=== PATIENT | male | born 1995 ===

== ENCOUNTER 2017-08-27 18:45 | Emergency (ER) | payer SELFPAY ==
[2017-08-27 19:05] VITALS: BP 107/71; PULSE 70; RESP 18; TEMP 99.2; O2SAT 96
[2017-08-27] MEDS ORDERED: Sodium Chloride 0.9% 1,000 ML IV STA (19:22)
--- NOTE | 2017-08-27 19:37 | ED PDOC ---
HPI: General Adult Time Seen by Provider: 08/27/17 19:22 Chief Complaint (Nursing): Flu-like Symptoms Chief Complaint (Provider): Flu-like symptoms History Per: Patient History/Exam Limitations: no limitations Onset/Duration Of Symptoms: Days (x4) Current Symptoms Are (Timing): Still Present Recent Trauma: None Additional Complaint(s): Nate Buenrostro is a 22 year old male, with no past medical history, who presents to the emergency department complaining of fever, sore throat, vomiting and molar pain onset for x4 days. Patient took Tylenol today with no relief of symptoms. He denies any cough or other medical complaints. PMD: None provided. Past Medical History Reviewed: Historical Data, Nursing Documentation, Vital Signs Vital Signs: Last Vital Signs Temp 99.2 F 08/27/17 19:02 Pulse 70 08/27/17 19:02 Resp 18 08/27/17 19:02 BP 107/71 08/27/17 19:02 Pulse Ox 96 08/27/17 21:38 - Medical History PMH: No Chronic Diseases - Surgical History Surgical History: No Surg Hx - Family History Family History: States: Unknown Family Hx - Home Medications Home Medications: Ambulatory Orders Medication Instructions Recorded Ibuprofen [Motrin] 600 mg PO Q8 PRN #21 tab 08/27/17 Mag&Al/Simet/Diphen/Lido [First 5 ml MM TID PRN #1 kit 08/27/17 Magic Mouthwash] Penicillin VK [Penicillin VK Tab] 500 mg PO QID #40 tab 08/27/17 - Allergies Allergies/Adverse Reactions: Allergies Allergy/AdvReac Type Severity Reaction Status Date / Time No Known Allergies Allergy Verified 08/27/17 19:02 Review of Systems ROS Statement: Except As Marked, All Systems Reviewed And Found Negative Constitutional: Positive for: Fever ENT: Positive for: Mouth Pain, Throat Pain Respiratory: Negative for: Cough Gastrointestinal: Positive for: Vomiting Physical Exam - Reviewed Nursing Documentation Reviewed: Yes Vital Signs Reviewed: Yes - Physical Exam Appears: Positive for: Well, Non-toxic, No Acute Distress Head Exam: Positive for: ATRAUMATIC, NORMAL INSPECTION, NORMOCEPHALIC Skin: Positive for: Normal Color, Warm, Dry Eye Exam: Positive for: Normal appearance ENT: Positive for: Pharyngeal Erythema (and ulcerated on posterior pharynx ), Tonsillar Exudate Neck: Positive for: Painless ROM, Supple Cardiovascular/Chest: Positive for: Regular Rate, Rhythm. Negative for: Murmur Respiratory: Positive for: Normal Breath Sounds (clear auscultation b/l). Negative for: Respiratory Distress Extremity: Positive for: Normal ROM. Negative for: Deformity, Swelling Neurologic/Psych: Positive for: Alert, Oriented - Laboratory Results Result Diagrams: 08/27/17 20:01 08/27/17 20:01 - ECG O2 Sat by Pulse Oximetry: 96 (RA) Pulse Ox Interpretation: Normal - Progress ED Course And Treament: rapid strep neg mono neg toradol 15 mg iv x 1 dose ns 1 liter wide open viscous lidocaine swish and spit morphine 2 mg iv x 1 dose for pain seen with Dr. Redd. Will send throat cx and treat for strep. Medical Decision Making Medical Decision Making: Initial Impression: Initial Plan: --CMP --CBC w/ differential --Toradol 15 mg IVP --Lidocaine 2% 5 ml PO --Sodium Chloride 1,000 ml IV 1,000 mls/hr --Anson [Infectious Mononucleosis] --Rapid Strep Group A Antigen --reevaluation ~ Scribe Attestation: Documented by Jalen Hackett, acting as a scribe for Jayne Vallejo PA-C. Provider Scribe Attestation: All medical record entries made by the Scribe were at my direction and personally dictated by me. I have reviewed the chart and agree that the record accurately reflects my personal performance of the history, physical exam, medical decision making, and the department course for this patient. I have also personally directed, reviewed, and agree with the discharge instructions and disposition. Disposition - Clinical Impression Clinical Impression: Pharyngitis - Patient ED Disposition Is Patient to be Admitted: No - Disposition Referrals: [facility] [Outside] Jamie Delacruz MD [Staff Provider] - Disposition: Routine/Home Disposition Time: 21:28 Condition: FAIR Prescriptions: Ibuprofen [Motrin] 600 mg PO Q8 PRN #21 tab PRN Reason: Pain, Moderate (4-7) Mag&Al/Simet/Diphen/Lido [First Magic Mouthwash] 5 ml MM TID PRN #1 kit PRN Reason: Pain, Moderate (4-7) Penicillin VK [Penicillin VK Tab] 500 mg PO QID #40 tab Instructions: Pharyngitis (ED) Forms: [facility] (Danish), [facility] ED School/Work Excuse Print Language: ANGUILLAN
[2017-08-27 20:06] LABS: BASO % 0.4 % (0.0-2.0); EOS % 0.3 % (0.0-4.0); HEMOGLOBIN 15.5 g/dL (12.0-18.0); LYMPH # 0.9 K/uL (1.0-4.3); LYMPH % 16.2 % (20.0-40.0); MEAN CELL VOLUME 84.1 fl (80.0-94.0); MEAN CORPUSCULAR HEMOGLOBIN 28.3 pg (27.0-31.0); MEAN CORPUSCULAR HGB CONC 33.6 g/dL (33.0-37.0); MEAN PLATELET VOLUME 9.8 fl (7.2-11.7); MONO # 0.6 K/uL (0.0-0.8); MONO % 9.9 % (0.0-10.0); NEUT # 4.2 K/uL (1.8-7.0); NEUT % 73.2 % (50.0-75.0); NRBC % 1.1 % (0.0-0.0); RBC 5.49 Mil/uL (4.40-5.90); RED CELL DISTRIBUTION WIDTH 13.4 % (11.5-14.5); WHITE BLOOD COUNT 5.7 K/uL (4.8-10.8)
[2017-08-27 20:15] LABS: ALBUMIN 4.8 g/dL (3.5-5.0); ALT/SGPT 60 U/L (21-72); AST/SGOT 29 U/L (17-59); BLOOD UREA NITROGEN 7 mg/dl (9-20); CALCIUM 9.7 mg/dL (8.4-10.2); GFR AFRICAN-AMERICAN > 60; GFR NON-AFRICAN AMERICAN > 60
[2017-08-27 20:26] LABS: ALB/GLOB RATIO 1.3 (1.0-2.1)
[2017-08-27] MEDS ORDERED: Morphine 4 MG/ML VIAL IVP ONE (21:55)
[2017-08-27] MEDS ORDERED: Oxycodone/Acetaminophen 5/325 mg Tab PO STA (22:38)
== END 2017-08-27 22:56 | disposition home or self-care (01) ==
LOC: H.ER 18:45
DX: J02.9 Acute pharyngitis, unspecified (principal)
CPT/HCPCS: 80053; 85025; 86308; 87070; 87430; 96361; 96374; 99283; J1885; J7040

== ENCOUNTER 2018-01-08 17:36 | Emergency (ER) | payer OTHER ==
[2018-01-08] MEDS ORDERED: Sodium Chloride 0.9% 1,000 ML IV STA (18:01)
--- NOTE | 2018-01-08 18:14 | ED PDOC ---
HPI: Abdomen Time Seen by Provider: 01/08/18 18:00 Chief Complaint (Nursing): Abdominal Pain Chief Complaint (Provider): Right Flank Pain and Right abdominal pain History Per: Patient History/Exam Limitations: no limitations Onset/Duration Of Symptoms: Days (x1 week) Outside of [place] travel?: No Current Symptoms Are (Timing): Still Present Quality Of Discomfort: "Pain" Associated Symptoms: denies: Nausea, Vomiting, Diarrhea, Back Pain, Urinary Symptoms Exacerbating Factors: None Additional Complaint(s): 22 year old male presents to the emergency department complaining of right sided abdominal pain x1 week. Denies nausea, vomiting, diarrhea, vision problems , testicular pain, chest pain, numbness, tingling, urinary symptoms. FAMILY PROVIDER,NO Past Medical History Reviewed: Historical Data, Nursing Documentation - Medical History PMH: No Chronic Diseases Denies: Chronic Kidney Disease - Surgical History Surgical History: Appendectomy - Family History Family History: States: Unknown Family Hx - Social History Current smoker - smoking cessation education provided: Yes (Light Smoker < 10 Cigarettes Daily) Alcohol: Social Drugs: Denies - Immunization History Hx Tetanus Toxoid Vaccination: No Hx Influenza Vaccination: No Hx Pneumococcal Vaccination: No - Home Medications Home Medications: Ambulatory Orders Medication Instructions Recorded Ibuprofen [Motrin] 600 mg PO Q8 PRN #21 tab 08/27/17 Mag&Al/Simet/Diphen/Lido [First 5 ml MM TID PRN #1 kit 08/27/17 Magic Mouthwash] Penicillin VK [Penicillin VK Tab] 500 mg PO QID #40 tab 08/27/17 Ibuprofen [Motrin] 600 mg PO TID 7 Days tab 01/08/18 Nitrofurantoin Macrocrystals 100 mg PO BID #10 cap 01/08/18 [Macrobid] - Allergies Allergies/Adverse Reactions: Allergies Allergy/AdvReac Type Severity Reaction Status Date / Time No Known Allergies Allergy Verified 08/27/17 19:02 Review of Systems ROS Statement: Except As Marked, All Systems Reviewed And Found Negative Constitutional: Negative for: Fever, Sweats Eyes: Negative for: Vision Change Cardiovascular: Negative for: Chest Pain Gastrointestinal: Positive for: Abdominal Pain (right sided). Negative for: Nausea, Vomiting, Diarrhea, Constipation Genitourinary Male: Negative for: Dysuria, Frequency Physical Exam - Reviewed Nursing Documentation Reviewed: Yes Vital Signs Reviewed: Yes - Physical Exam Appears: Positive for: Non-toxic, No Acute Distress Head Exam: Positive for: ATRAUMATIC, NORMAL INSPECTION, NORMOCEPHALIC Skin: Positive for: Normal Color, Warm, Dry. Negative for: Rash Eye Exam: Positive for: Normal appearance, EOMI, PERRL. Negative for: Nystagmus ENT: Positive for: Normal ENT Inspection. Negative for: Nasal Congestion, Tonsillar Exudate, Tonsillar Swelling Neck: Positive for: Normal, Painless ROM, Supple Cardiovascular/Chest: Positive for: Regular Rate, Rhythm, Chest Non Tender. Negative for: Bradycardia Respiratory: Positive for: Normal Breath Sounds. Negative for: Wheezing, Respiratory Distress Gastrointestinal/Abdominal: Positive for: Bowel Sounds, Soft, Tenderness (right flank and right abdominal area). Negative for: Distended, Guarding, Rebound Back: Positive for: R CVA Tenderness. Negative for: L CVA Tenderness Extremity: Positive for: Normal ROM. Negative for: Tenderness, Deformity, Swelling Neurologic/Psych: Positive for: Alert, Oriented, Gait. Negative for: Motor/ Sensory Deficits - Laboratory Results Result Diagrams: 01/08/18 18:25 01/08/18 18:25 Interpretation Of Abn Labs: no acute - CT Scan/US ct Other Rad Studies (CT/US): Read By Radiologist Other Rad Interpretation: cystitis appearance - Progress ED Course And Treament: 2022: Stable. AAOx3. Pt. to be dc. Will rx macrobid for possible uti. Tolerated PO. Medical Decision Making Medical Decision Makin Initial Impression 22 year old male presenting with right flank plank Initial Plan: * CT ABD & PELV w/o Contrast * CMP * Lipase * CBC * NS 1000 ml IV 1000 mls/hr * Toradol 15mg IVP * Zofran 4mg PO * Reevaluation Documented by Chanel ramirez for Hernan Redd MD. All medical record entries made by the Marcelo were at my direction and personally dictated by me. I have reviewed the chart and agree that the record accurately reflects my personal performance of the history, physical exam, medical decision making, and the department course for this patient. I have also personally directed, reviewed, and agree with the discharge instructions and disposition. Disposition - Clinical Impression Clinical Impression: Abdominal pain, UTI (urinary tract infection) - Patient ED Disposition Is Patient to be Admitted: No - Disposition Referrals: [facility] [Outside] - 01/09/18 Disposition: Routine/Home Disposition Time: 20:24 Condition: STABLE Additional Instructions: Return if not better in 3 days. Prescriptions: Ibuprofen [Motrin] 600 mg PO TID 7 Days tab Nitrofurantoin Macrocrystals [Macrobid] 100 mg PO BID #10 cap Instructions: Urinary Tract Infections in Adults, Stomach Ache and Stomach Upset Print Language: ARGENTINE
[2018-01-08 18:39] LABS: BASO % 0.3 % (0.0-2.0); EOS % 0.2 % (0.0-4.0); HEMOGLOBIN 16.1 g/dL (12.0-18.0); LYMPH % 14.1 % (20.0-40.0); MEAN CELL VOLUME 83.1 fl (80.0-94.0); MEAN CORPUSCULAR HEMOGLOBIN 28.7 pg (27.0-31.0); MEAN CORPUSCULAR HGB CONC 34.5 g/dL (33.0-37.0); MEAN PLATELET VOLUME 10.5 fl (7.2-11.7); MONO # 0.3 K/uL (0.0-0.8); MONO % 5.1 % (0.0-10.0); NEUT # 5.5 K/uL (1.8-7.0); NEUT % 80.3 % (50.0-75.0); NRBC % 0.6 % (0.0-0.0); RBC 5.62 Mil/uL (4.40-5.90); RED CELL DISTRIBUTION WIDTH 13.4 % (11.5-14.5); WHITE BLOOD COUNT 6.9 K/uL (4.8-10.8)
[2018-01-08 18:49] LABS: ALB/GLOB RATIO 1.5 (1.0-2.1); ALBUMIN 4.7 g/dL (3.5-5.0); ALT/SGPT 39 U/L (21-72); AST/SGOT 25 U/L (17-59); BLOOD UREA NITROGEN 13 mg/dl (9-20); CALCIUM 9.7 mg/dL (8.4-10.2); GFR AFRICAN-AMERICAN > 60; GFR NON-AFRICAN AMERICAN > 60; LIPASE 45 U/L (23-300)
--- NOTE | 2018-01-08 18:54 | CT ---
PROCEDURE: CT Abdomen and Pelvis without intravenous contrast HISTORY: R/O stone COMPARISON: None. TECHNIQUE: Unenhanced study. Neither oral nor intravenous contrast administered. Radiation dose: Total exam DLP = 403.29 mGy-cm. This CT exam was performed using one or more of the following dose reduction techniques: Automated exposure control, adjustment of the mA and/or kV according to patient size, and/or use of iterative reconstruction technique. FINDINGS: LOWER THORAX: Unremarkable. LIVER: Unremarkable. No gross lesion or ductal dilatation. GALLBLADDER AND BILE DUCTS: Unremarkable. PANCREAS: Unremarkable. No gross lesion or ductal dilatation. SPLEEN: Mild splenomegaly. Orthogonal measurements 5.8 x 12.4 x 14.7 cm. Go ADRENALS: Unremarkable. No mass. KIDNEYS AND URETERS: Unremarkable. No hydronephrosis. No solid mass. VASCULATURE: Unremarkable. No aortic aneurysm. BOWEL: Unremarkable. No obstruction. No gross mural thickening. APPENDIX: No abnormalities to suggest acute appendicitis. No right lower quadrant inflammatory processes identified. PERITONEUM: Unremarkable. No free fluid. No free air. LYMPH NODES: Unremarkable. No enlarged lymph nodes. BLADDER: Diffuse bladder wall thickening, findings suggestive of cystitis. No focal bladder wall or intramural abnormalities identified. REPRODUCTIVE: Unremarkable. BONES: No acute fracture. OTHER FINDINGS: None. IMPRESSION: Diffuse bladder wall thickening suggestive of acute cystitis. Additional benign and/or incidental findings described above.
[2018-01-08 20:49] VITALS: BP 128/69; PULSE 63; RESP 18; TEMP 99; O2SAT 99
== END 2018-01-08 20:48 | disposition home or self-care (01) ==
LOC: H.ER 17:36 → SUPCPDRO 17:36 → H.ER 20:48
DX: N39.0 Urinary tract infection, site not specified (principal)
CPT/HCPCS: 74176; 80053; 83690; 85025; 96374; 99285; J1885; J7030

== ENCOUNTER 2018-03-15 12:46 | Emergency (ER) | payer SELFPAY ==
[2018-03-15] MEDS ORDERED: Sodium Chloride 0.9% 1,000 ML IV STA (13:20)
--- NOTE | 2018-03-15 13:29 | ED PDOC ---
HPI: Chest Pain Time Seen by Provider: 03/15/18 13:04 Chief Complaint (Nursing): Chest Pain Chief Complaint (Provider): Chest Pain History Per: Patient History/Exam Limitations: no limitations Onset/Duration Of Symptoms: Days Current Symptoms Are (Timing): Still Present Quality: "Pain" Additional Complaint(s): 22 year old male with a past medical history of rheumatic fever presents to the ED for an evaluation of chest pain onset since last night that lasted for few minutes. Reports he has intermittent chest pain onset for 1 year. Also reports of shortness of breath and anxiety. Patient did not take any mediation. Denies fever, chills, cough, abdominal pain, nausea, vomiting, diarrhea, dysuria, incontinence or headache. No long distance travel, hormone use. Currently no dyspnea or chest pain. PMD: Non CPH Provider Past Medical History Reviewed: Historical Data, Nursing Documentation, Vital Signs Vital Signs: Last Vital Signs Temp 98.1 F 03/15/18 15:51 Pulse 72 03/15/18 15:51 Resp 16 03/15/18 15:51 BP 123/74 03/15/18 15:51 Pulse Ox 100 03/15/18 15:51 - Medical History PMH: Anxiety Denies: Chronic Kidney Disease Other PMH: rheumatic fever - Surgical History Surgical History: Appendectomy - Family History Family History: States: Unknown Family Hx - Immunization History Hx Tetanus Toxoid Vaccination: No Hx Influenza Vaccination: No Hx Pneumococcal Vaccination: No - Home Medications Home Medications: Ambulatory Orders Medication Instructions Recorded Ibuprofen [Motrin] 600 mg PO Q8 PRN #21 tab 08/27/17 Mag&Al/Simet/Diphen/Lido [First 5 ml MM TID PRN #1 kit 08/27/17 Magic Mouthwash] Penicillin VK [Penicillin VK Tab] 500 mg PO QID #40 tab 08/27/17 Ibuprofen [Motrin] 600 mg PO TID 7 Days tab 01/08/18 Nitrofurantoin Macrocrystals 100 mg PO BID #10 cap 01/08/18 [Macrobid] - Allergies Allergies/Adverse Reactions: Allergies Allergy/AdvReac Type Severity Reaction Status Date / Time No Known Allergies Allergy Verified 08/27/17 19:02 Review of Systems ROS Statement: Except As Marked, All Systems Reviewed And Found Negative Constitutional: Negative for: Fever, Chills Cardiovascular: Positive for: Chest Pain Respiratory: Positive for: Shortness of Breath. Negative for: Cough Gastrointestinal: Negative for: Nausea, Vomiting, Abdominal Pain, Diarrhea Genitourinary Male: Negative for: Dysuria, Frequency, Incontinence Neurological: Negative for: Headache Psych: Positive for: Anxiety. Negative for: Suicidal ideation (homicidal ideation) Physical Exam - Reviewed Nursing Documentation Reviewed: Yes Vital Signs Reviewed: Yes - Physical Exam Appears: Positive for: Non-toxic, No Acute Distress Head Exam: Positive for: ATRAUMATIC, NORMAL INSPECTION, NORMOCEPHALIC Skin: Positive for: Normal Color, Warm, Dry Eye Exam: Positive for: Normal appearance, EOMI, PERRL ENT: Positive for: Normal ENT Inspection Neck: Positive for: Normal, Painless ROM, Supple Cardiovascular/Chest: Positive for: Regular Rate, Rhythm. Negative for: Murmur Respiratory: Positive for: Normal Breath Sounds. Negative for: Decreased Breath Sounds, Wheezing, Respiratory Distress Gastrointestinal/Abdominal: Positive for: Normal Exam, Bowel Sounds, Soft. Negative for: Tenderness, Guarding, Rebound Back: Positive for: Normal Inspection. Negative for: L CVA Tenderness, R CVA Tenderness Extremity: Positive for: Normal ROM. Negative for: Tenderness, Pedal Edema, Deformity Neurologic/Psych: Positive for: Alert, Oriented (x3). Negative for: Motor/ Sensory Deficits - Laboratory Results Result Diagrams: 03/15/18 13:50 03/15/18 13:50 Interpretation Of Abnormal: no acute - ECG ECG: Positive for: Interpreted By Me, Viewed By Me ECG Rhythm: Positive for: Normal QRS, Normal ST Segment, Sinus Rhythm O2 Sat by Pulse Oximetry: 98 (RA) Pulse Ox Interpretation: Normal - Radiology X-Ray: Read By Radiologist X-Ray Interpretation: No Acute Disease - Progress ED Course And Treament: 1639: Feels much better. No pain. No dyspnea. Fu with pcp. AAOx3. Medical Decision Making Medical Decision Making: Time: 1320 Initial Impression: chest pain Initial Plan: --EKG --Alcohol serum --BMP --Drug Screen --Troponin I --Urine Dipe --CBC w/ Differential --Chest Portable [RAD] --Normal Saline 1000 mls/ hr --Pepcid 20mg --Toradol 15mg --Reevaluation Time: 1342 HISTORY: dyspnea COMPARISON: No prior. FINDINGS: LUNGS: No active pulmonary disease. PLEURA: No significant pleural effusion identified, no pneumothorax apparent. CARDIOVASCULAR: Normal. OSSEOUS STRUCTURES: No significant abnormalities. VISUALIZED UPPER ABDOMEN: Normal. OTHER FINDINGS: None. IMPRESSION: No acute cardiopulmonary disease appreciated. Scribe Attestation: Documented by Esperanza Padgett, acting as a scribe for Hernan Redd MD Provider Scribe Attestation: All medical record entries made by the Scribe were at my direction and personally dictated by me. I have reviewed the chart and agree that the record accurately reflects my personal performance of the history, physical exam, medical decision making, and the department course for this patient. I have also personally directed, reviewed, and agree with the discharge instructions and disposition. Disposition - Clinical Impression Clinical Impression: Chest pain - Patient ED Disposition Is Patient to be Admitted: No Counseled Patient/Family Regarding: Studies Performed, Diagnosis, Need For Followup, Rx Given - Disposition Referrals: [facility] [Outside] - 03/18/18 Disposition: Routine/Home Disposition Time: 16:42 Condition: STABLE Additional Instructions: Return if not better in 3 days. Instructions: Chest Pain Print Language: [place]THER[place] IRISH
--- NOTE | 2018-03-15 13:43 | RAD ---
Date of service: 03/15/2018 HISTORY: dyspnea COMPARISON: No prior. FINDINGS: LUNGS: No active pulmonary disease. PLEURA: No significant pleural effusion identified, no pneumothorax apparent. CARDIOVASCULAR: Normal. OSSEOUS STRUCTURES: No significant abnormalities. VISUALIZED UPPER ABDOMEN: Normal. OTHER FINDINGS: None. IMPRESSION: No acute cardiopulmonary disease appreciated.
[2018-03-15 13:59] LABS: BASO % 0.3 % (0.0-2.0); EOS % 0.2 % (0.0-4.0); HEMOGLOBIN 15.2 g/dL (12.0-18.0); LYMPH % 14.6 % (20.0-40.0); MEAN CELL VOLUME 82.7 fl (80.0-94.0); MEAN CORPUSCULAR HEMOGLOBIN 29.4 pg (27.0-31.0); MEAN CORPUSCULAR HGB CONC 35.6 g/dL (33.0-37.0); MEAN PLATELET VOLUME 9.9 fl (7.2-11.7); MONO # 0.3 K/uL (0.0-0.8); MONO % 3.8 % (0.0-10.0); NEUT # 5.4 K/uL (1.8-7.0); NEUT % 81.1 % (50.0-75.0); RBC 5.17 Mil/uL (4.40-5.90); RED CELL DISTRIBUTION WIDTH 13.2 % (11.5-14.5); WHITE BLOOD COUNT 6.6 K/uL (4.8-10.8)
[2018-03-15 14:09] LABS: BLOOD UREA NITROGEN 9 mg/dl (9-20); CALCIUM 9.7 mg/dL (8.4-10.2); GFR AFRICAN-AMERICAN > 60; GFR NON-AFRICAN AMERICAN > 60
[2018-03-15 15:48] LABS: BARBITURATES, UR NEGATIVE (NEGATIVE); BENZODIAZEPINES, UR NEGATIVE (NEGATIVE); OPIATES, UR NEGATIVE (NEGATIVE); PHENCYCLIDINE, UR NEGATIVE (NEGATIVE)
[2018-03-15 15:52] VITALS: TEMP 98.1
[2018-03-15 17:16] VITALS: BP 122/74; PULSE 79; RESP 15; O2SAT 100
--- NOTE | 2018-03-17 19:05 | CARD ---
APPROVED REPORT Date of service: 03/15/2018 EKG Measurement Heart [id number] <Conclusion> Normal sinus rhythm Rightward axis Borderline ECG
== END 2018-03-15 17:16 | disposition home or self-care (01) ==
LOC: H.ER 12:46
DX: R07.89 Other chest pain (principal); F41.9 Anxiety disorder, unspecified
CPT/HCPCS: 71045; 80048; 84484; 85025; 93005; 96374; 96375; 99284; G0480; J1885; J7030